=== PATIENT | female | born 1975 | race Caucasian/White ===

== ENCOUNTER 2018-04-22 23:01 | Emergency (ER) | payer OTHER ==
[~2018-04-22] VITALS: Ht 167.6 cm; Wt 72.6 kg
[2018-04-22 23:19] VITALS: BP 136/95
== END 2018-04-23 01:18 | disposition home or self-care (01) ==
LOC: ER 23:01
DX: M79.661 Pain in right lower leg (principal); I82.431 Acute embolism and thrombosis of right popliteal vein
CPT/HCPCS: 99282